=== PATIENT | female | born 1960 | race Caucasian/White ===

== ENCOUNTER 2022-11-22 11:29 | Inpatient (IN) | payer BC, OTHER ==
[2022-11-22] MEDS ORDERED: ALBUTEROL SO4 2.5/IPRATROPIUM 0.5 INH SOL 3 ML VIAL.NEB. NEB ONE ×2 (12:01→12:56)
[2022-11-22] MEDS ORDERED: predniSONE 20 MG TABLET (UD) PO ONE (12:27)
[2022-11-22] MEDS ORDERED: predniSONE 20 MG TABLET (UD) ONE (12:56)
[2022-11-22 13:16] LABS: BASO % 0.6 % (0-2.0); EOS % 6.5 % (0-4.5); HEMATOCRIT 38.1 % (32.4-45.2); HEMOGLOBIN 12.7 GM/dL (10.7-15.3); LYMPH % 17.4 % (8-40); MCH 31.4 pg (25.7-33.7); MCHC 33.4 g/dl (32.0-36.0); MEAN CELL VOLUME 93.9 fl (80-96); MEAN PLT VOLUME 7.3 fl (7.5-11.1); MONO % 5.6 % (3.8-10.2); NEUT % 69.9 % (42.8-82.8); PLATELET COUNT 332 10^3/uL (134-434); RBC 4.06 M/mm3 (3.60-5.2); RDW 15.1 % (11.6-15.6); WHITE BLOOD COUNT 11.1 K/mm3 (4.0-10.0)
[2022-11-22] MEDS ORDERED: PIPERACILLIN/TAZOB 4.5 GM 4.5 GM in DEXTROSE 5%-WATER 100 ML IVPB ONE (13:16)
[2022-11-22 13:34] LABS: PROTHROMBIN TIME (PATIENT) 11.6 SEC (9.7-13.0)
[2022-11-22 13:36] LABS: ACTIVATED PTT 35.3 SECONDS (25.2-36.5)
[2022-11-22 13:49] LABS: ALBUMIN 3.4 g/dl (3.4-5.0); CALCIUM 9.2 mg/dL (8.5-10.1)
[2022-11-22 13:50] LABS: BLOOD UREA NITROGEN 15.6 mg/dL (7-18)
[2022-11-22 13:52] LABS: CREATININE 1.3 mg/dL (0.55-1.3)
[2022-11-22 13:54] LABS: BILIRUBIN,TOTAL 0.3 mg/dL (0.2-1); TOT PROT 7.1 g/dl (6.4-8.2)
[2022-11-22 13:57] LABS: N-TERMINAL BNP 21.5 pg/ml (5-125)
[2022-11-22] MEDS ORDERED: PIPERACILLIN/TAZOB 4.5 GM 4.5 GM/100 ML BAG IVPB ONE (13:57)
[2022-11-22 18:27] VITALS: BMI 24.3
[2022-11-22] MEDS: ALBUTEROL SO4 2.5/IPRATROPIUM 0.5 INH SOL 3 ML VIAL.NEB. NEB SCH (19:30)
[2022-11-22] MEDS ORDERED: QUEtiapine FUMARATE 25 MG TABLET ONE (21:29)
[2022-11-22] MEDS: MONTELUKAST NA 10 MG TABLET PO SCH (21:33)
[2022-11-22] MEDS: GABAPENTIN 300 MG CAPSULE PO SCH (21:33)
[2022-11-22] MEDS: BACLOFEN 10 MG TABLET (FP) PO SCH (21:34)
[2022-11-22] MEDS: QUEtiapine FUMARATE 50 MG TABLET PO SCH (21:38)
[2022-11-22] MEDS ORDERED: SACUBITRIL/VALSARTAN 24 MG-26 MG TABLET PO SCH (22:00)
[2022-11-22] MEDS: ACETAMINOPHEN 325 MG TABLET (FP) PO PRN (23:18)
[2022-11-23] MEDS: ALBUTEROL SO4 2.5/IPRATROPIUM 0.5 INH SOL 3 ML VIAL.NEB. NEB SCH ×4 (07:52→20:05)
[2022-11-23] MEDS: CEFTRIAXONE 1 GM in DEXTROSE 5%-WATER - 50 ML IVPB SCH ×3 (08:30→11:48)
[2022-11-23 08:34] LABS: BASO % 0.2 % (0-2.0); EOS % 0.2 % (0-4.5); HEMOGLOBIN 12.4 GM/dL (10.7-15.3); LYMPH % 17.1 % (8-40); MCH 31.6 pg (25.7-33.7); MCHC 33.4 g/dl (32.0-36.0); MEAN CELL VOLUME 94.6 fl (80-96); MEAN PLT VOLUME 7.3 fl (7.5-11.1); MONO % 5.8 % (3.8-10.2); NEUT % 76.7 % (42.8-82.8); PLATELET COUNT 343 10^3/uL (134-434); RBC 3.91 M/mm3 (3.60-5.2); RDW 14.8 % (11.6-15.6); WHITE BLOOD COUNT 10.6 K/mm3 (4.0-10.0)
[2022-11-23 09:00] LABS: ALBUMIN 3.2 g/dl (3.4-5.0); BLOOD UREA NITROGEN 21.3 mg/dL (7-18); MAGNESIUM 2.2 mg/dL (1.8-2.4)
[2022-11-23 09:03] LABS: PHOSPHOROUS 3.8 mg/dL (2.5-4.9)
[2022-11-23 09:04] LABS: TOT PROT 6.7 g/dl (6.4-8.2)
[2022-11-23 09:05] LABS: BILIRUBIN,TOTAL 0.2 mg/dL (0.2-1)
[2022-11-23] MEDS: AZITHROMYCIN 250 MG TABLET PO SCH ×3 (09:12→11:48)
[2022-11-23] MEDS ORDERED: methylPREDNISolone NA SUCC 40 MG/1 ML VIAL IVPUSH SCH (10:00)
[2022-11-23] MEDS ORDERED: SPIRONOLACTONE 25 MG TABLET PO SCH (10:00)
[2022-11-23] MEDS ORDERED: PATIENT'S OWN MEDICATION (NON-FORMULARY) (Dolutegravir Sodium/Lamivudine [Dovato 50-300 Mg PO SCH (10:00)
[2022-11-23] MEDS: ENOXAPARIN NA (PORCINE) 40 MG/0.4 ML DISP.SYRIN SQ SCH (11:33)
[2022-11-23] MEDS: LORATADINE 10 MG TABLET PO SCH (11:33)
[2022-11-23] MEDS: GABAPENTIN 300 MG CAPSULE PO SCH ×2 (11:33→21:36)
[2022-11-23] MEDS: DOLUTEGRAVIR SODIUM 50 MG TABLET (NON-FORMULARY) PO SCH (11:34)
[2022-11-23] MEDS: lamiVUDine 150 MG TABLET PO SCH (11:35)
[2022-11-23] MEDS ORDERED: guaiFENesin/D-M SUGAR-FREE/ACLHOL-FREE (200 MG/10 MG) 5 ML PO PRN (15:24)
[2022-11-23] MEDS: ACETAMINOPHEN 325 MG TABLET (FP) PO PRN ×2 (15:31→21:31)
[2022-11-23] MEDS ORDERED: QUEtiapine FUMARATE 25 MG TABLET ONE (21:20)
[2022-11-23] MEDS: QUEtiapine FUMARATE 50 MG TABLET PO SCH (21:33)
[2022-11-23] MEDS: methylPREDNISolone NA SUCC 40 MG/1 ML VIAL IVPUSH SCH (21:34)
[2022-11-23] MEDS: BACLOFEN 10 MG TABLET (FP) PO SCH (21:35)
[2022-11-23] MEDS: MONTELUKAST NA 10 MG TABLET PO SCH (21:36)
[2022-11-23] MEDS: BUDESONIDE/FORMETEROL FUMARATE 160/4.5 mcg INHALER IH SCH (21:39)
[2022-11-23] MEDS: diphenhydrAMINE HCL 25 MG CAPSULE (FP) PO PRN (21:41)
[2022-11-24] MEDS: methylPREDNISolone NA SUCC 40 MG/1 ML VIAL IVPUSH SCH ×4 (02:06→21:32)
[2022-11-24] MEDS: ALBUTEROL SO4 2.5/IPRATROPIUM 0.5 INH SOL 3 ML VIAL.NEB. NEB SCH ×4 (08:32→20:21)
[2022-11-24] MEDS: GABAPENTIN 300 MG CAPSULE PO SCH ×2 (09:41→21:32)
[2022-11-24] MEDS: AZITHROMYCIN 250 MG TABLET PO SCH (09:41)
[2022-11-24] MEDS: ENOXAPARIN NA (PORCINE) 40 MG/0.4 ML DISP.SYRIN SQ SCH (09:41)
[2022-11-24] MEDS: LORATADINE 10 MG TABLET PO SCH (09:41)
[2022-11-24] MEDS: DOLUTEGRAVIR SODIUM 50 MG TABLET (NON-FORMULARY) PO SCH (09:42)
[2022-11-24] MEDS: lamiVUDine 150 MG TABLET PO SCH (09:42)
[2022-11-24] MEDS: BUDESONIDE/FORMETEROL FUMARATE 160/4.5 mcg INHALER IH SCH ×2 (09:45→21:33)
[2022-11-24] MEDS: ACETAMINOPHEN 325 MG TABLET (FP) PO PRN (13:32)
[2022-11-24] MEDS: ACETAMINOPHEN/CAFFEINE/BUTALBITAL 1 TAB PO PRN (17:30)
[2022-11-24] MEDS ORDERED: QUEtiapine FUMARATE 25 MG TABLET ONE (21:30)
[2022-11-24] MEDS: QUEtiapine FUMARATE 50 MG TABLET PO SCH (21:32)
[2022-11-24] MEDS: BACLOFEN 10 MG TABLET (FP) PO SCH (21:33)
[2022-11-24] MEDS: MONTELUKAST NA 10 MG TABLET PO SCH (21:33)
[2022-11-24] MEDS: diphenhydrAMINE HCL 25 MG CAPSULE (FP) PO PRN (21:43)
[2022-11-25] MEDS: methylPREDNISolone NA SUCC 40 MG/1 ML VIAL IVPUSH SCH ×3 (02:09→17:04)
[2022-11-25] MEDS: ALBUTEROL SO4 2.5/IPRATROPIUM 0.5 INH SOL 3 ML VIAL.NEB. NEB SCH ×4 (08:13→20:30)
[2022-11-25] MEDS: AZITHROMYCIN 250 MG TABLET PO SCH (09:11)
[2022-11-25] MEDS: GABAPENTIN 300 MG CAPSULE PO SCH ×2 (09:11→22:18)
[2022-11-25] MEDS: LORATADINE 10 MG TABLET PO SCH (09:12)
[2022-11-25] MEDS: lamiVUDine 150 MG TABLET PO SCH (09:13)
[2022-11-25] MEDS: DOLUTEGRAVIR SODIUM 50 MG TABLET (NON-FORMULARY) PO SCH (09:14)
[2022-11-25] MEDS: ENOXAPARIN NA (PORCINE) 40 MG/0.4 ML DISP.SYRIN SQ SCH (09:21)
[2022-11-25] MEDS: BUDESONIDE/FORMETEROL FUMARATE 160/4.5 mcg INHALER IH SCH ×2 (09:22→22:19)
[2022-11-25] MEDS ORDERED: BISACODYL 5 MG TABLET.DR (FP) PO ONE (12:00)
[2022-11-25] MEDS: POLYETHYLENE GLYCOL (HEALTHYLAX) 3350 17 GM PACKET PO SCH ×2 (12:15→22:18)
[2022-11-25] MEDS: ACETAMINOPHEN/CAFFEINE/BUTALBITAL 1 TAB PO PRN (14:10)
[2022-11-25] MEDS ORDERED: QUEtiapine FUMARATE 25 MG TABLET ONE (21:39)
[2022-11-25] MEDS: BACLOFEN 10 MG TABLET (FP) PO SCH (22:18)
[2022-11-25] MEDS: MONTELUKAST NA 10 MG TABLET PO SCH (22:19)
[2022-11-25] MEDS: QUEtiapine FUMARATE 50 MG TABLET PO SCH (22:19)
[2022-11-26] MEDS: methylPREDNISolone NA SUCC 40 MG/1 ML VIAL IVPUSH SCH ×2 (02:33→09:39)
[2022-11-26] MEDS: ALBUTEROL SO4 2.5/IPRATROPIUM 0.5 INH SOL 3 ML VIAL.NEB. NEB SCH ×2 (08:53→12:55)
[2022-11-26 08:57] LABS: BASO % 0.1 % (0-2.0); HEMOGLOBIN 11.4 GM/dL (10.7-15.3); MCH 31.3 pg (25.7-33.7); MCHC 33.6 g/dl (32.0-36.0); MEAN CELL VOLUME 93.1 fl (80-96); MEAN PLT VOLUME 7.1 fl (7.5-11.1); MONO % 7.6 % (3.8-10.2); NEUT % 69.3 % (42.8-82.8); PLATELET COUNT 354 10^3/uL (134-434); RBC 3.66 M/mm3 (3.60-5.2); RDW 15.2 % (11.6-15.6); WHITE BLOOD COUNT 11.9 K/mm3 (4.0-10.0)
[2022-11-26 09:26] LABS: ALBUMIN 2.9 g/dl (3.4-5.0); CALCIUM 8.9 mg/dL (8.5-10.1)
[2022-11-26 09:27] LABS: TOT PROT 5.9 g/dl (6.4-8.2)
[2022-11-26 09:28] LABS: BILIRUBIN,TOTAL 0.2 mg/dL (0.2-1)
[2022-11-26 09:29] LABS: BLOOD UREA NITROGEN 24.1 mg/dL (7-18)
[2022-11-26] MEDS: AZITHROMYCIN 250 MG TABLET PO SCH (09:39)
[2022-11-26] MEDS: POLYETHYLENE GLYCOL (HEALTHYLAX) 3350 17 GM PACKET PO SCH (09:39)
[2022-11-26] MEDS: ENOXAPARIN NA (PORCINE) 40 MG/0.4 ML DISP.SYRIN SQ SCH (09:39)
[2022-11-26] MEDS: LORATADINE 10 MG TABLET PO SCH (09:40)
[2022-11-26] MEDS: GABAPENTIN 300 MG CAPSULE PO SCH (09:40)
[2022-11-26] MEDS: lamiVUDine 150 MG TABLET PO SCH (09:42)
[2022-11-26] MEDS: DOLUTEGRAVIR SODIUM 50 MG TABLET (NON-FORMULARY) PO SCH (09:43)
[2022-11-26] MEDS: BUDESONIDE/FORMETEROL FUMARATE 160/4.5 mcg INHALER IH SCH (09:51)
[2022-11-26] MEDS ORDERED: predniSONE 20 MG TABLET (UD) PO SCH (12:30)
[2022-11-26 13:27] VITALS: BP 138/52; PULSE 91; RESP 18; TEMP 97.8
[2022-11-26 22:07] LABS: CYCLIC CITRULLINE PEPTIDE AB 2 units (0-19)
[2022-11-27 21:06] LABS: ATYPICAL pANCA <1:20 titer (Neg:<1:20); C-ANCA <1:20 titer (Neg:<1:20)
== END 2022-11-26 13:34 | disposition home or self-care (01) | DRG 202 ==
LOC: JER 11:29 → UNDOADMOB 14:13 → INTOOBSV 14:13 → JERBED 14:13 → J5S 15:20 → JERBED 15:20 → J5S 17:16 → OBSVTOIN 11-23 15:10
PROVIDERS: ADMIT Internal Medicine; ATTEND Internal Medicine
DX: J45.50 Severe persistent asthma, uncomplicated (principal); B20 Human immunodeficiency virus [HIV] disease; F31.89 Other bipolar disorder; I51.81 Takotsubo syndrome; J67.9 Hypersensitivity pneumonitis due to unspecified organic dust; G43.909 Migraine, unspecified, not intractable, without status migrainosus
CPT/HCPCS: 0241U-QW; 36415; 71046-TC-FY; 71250-TC; 80053; 83520; 83735; 83880; 84100; 84443; 85025; 85379; 85610; 85651; 85730; 86038; 86140; 86200; 86256; 86359; 86360; 86431; 87633; 87899; 93005; 93010; 93306-TC; 94640; 99285-25; G0378; J0475

== ENCOUNTER 2023-01-09 10:26 | Inpatient (IN) | payer BC, OTHER ==
[2023-01-09] MEDS ORDERED: methylPREDNISolone NA SUCC 125 MG/2 ML VIAL IVPB ONE (10:36)
[2023-01-09] MEDS ORDERED: MAGNESIUM SULF 50% (8.12 MEQ/2 ML-1 GM VIAL) IVPB ONE (10:37)
[2023-01-09] MEDS ORDERED: ALBUTEROL SO4 2.5/IPRATROPIUM 0.5 INH SOL 3 ML VIAL.NEB. NEB ONE ×2 (10:37→10:48)
[2023-01-09] MEDS ORDERED: methylPREDNISolone NA SUCC 125 MG/2 ML VIAL ONE (10:48)
[2023-01-09] MEDS ORDERED: MAGNESIUM SULFATE IN WATER 2 GM/50 ML IVPB IVPB ONE (10:48)
[2023-01-09] MEDS ORDERED: VANCOMYCIN 1 GM in D5W (PRE-DOCKED) 1,000 MG/250 ML (RESTRICTED TO ID ONLY IVPB ONE (11:45)
[2023-01-09] MEDS ORDERED: PIPERACILLIN/TAZOB 3.375 GM 3.375 GM in DEXTROSE 5%-WATER - 50 ML IVPB ONE (11:45)
[2023-01-09 11:49] LABS: HEMATOCRIT 42.6 % (32.4-45.2); HEMOGLOBIN 14.5 G/dL (10.7-15.3); MCH 32.4 pg (25.7-33.7); MEAN CELL VOLUME 95.2 fl (80-96); MEAN PLT VOLUME 8.1 fl (7.5-11.1); PLATELET COUNT 306.4 10^3/uL (134-434); RBC 4.48 10^6/uL (3.60-5.2); RDW 14.2 % (11.6-15.6); WHITE BLOOD COUNT 10.6 10^3/uL (4.0-10.8)
[2023-01-09 11:57] LABS: ALBUMIN 3.8 g/dl (3.4-5.0); BILIRUBIN,TOTAL 0.6 mg/dl (0.2-1); CALCIUM 9.8 mg/dl (8.5-10); CREATININE 1.1 mg/dl (0.55-1.3); MAGNESIUM 1.9 mg/dL (1.8-2.4); POTASSIUM 4.1 mmol/L (3.5-5.1); TOT PROT 7.2 g/dl (6.4-8.2)
[2023-01-09 12:44] LABS: PLATELET ESTIMATE ADEQUATE
[2023-01-09] MEDS ORDERED: PIPERACILLIN/TAZOBACTAM 3.375 GM VIAL IVPB ONE (12:58)
[2023-01-09] MEDS ORDERED: VANCOMYCIN 1,000 MG VIAL (RESTRICTED TO ID ONLY) ONE (12:58)
[2023-01-09] MEDS: ALBUTEROL SO4 2.5/IPRATROPIUM 0.5 INH SOL 3 ML VIAL.NEB. NEB SCH (13:25)
[2023-01-09] MEDS ORDERED: guaiFENesin/D-METHORPHAN HB 10 ML UNIT-DOSE CUPS PO PRN (15:54)
[2023-01-09] MEDS ORDERED: ALBUTEROL SO4 2.5/IPRATROPIUM 0.5 INH SOL 3 ML VIAL.NEB. NEB PRN (16:08)
[2023-01-09 18:33] VITALS: BMI 24.8
[2023-01-09] MEDS ORDERED: AZITHROMYCIN IVPB 500 MG/250 ML BAG IVPB ONE (19:30)
[2023-01-09] MEDS: POLYETHYLENE GLYCOL (HEALTHYLAX) 3350 17 GM PACKET PO SCH (21:33)
[2023-01-09] MEDS: BUDESONIDE/FORMETEROL FUMARATE 160/4.5 mcg INHALER IH SCH (21:36)
[2023-01-09] MEDS ORDERED: MONTELUKAST NA 10 MG TABLET PO SCH (22:00)
[2023-01-09] MEDS ORDERED: QUEtiapine FUMARATE 50 MG TABLET PO SCH (22:00)
[2023-01-09] MEDS ORDERED: MELATONIN 5 MG TABLETS PO SCH (22:00)
[2023-01-09] MEDS ORDERED: GABAPENTIN 300 MG CAPSULE PO SCH ×2 (22:00)
[2023-01-09] MEDS ORDERED: BACLOFEN 10 MG TABLET (FP) PO SCH (22:00)
[2023-01-09 22:20] VITALS: RESP 19
[2023-01-10] MEDS ORDERED: buPROPion HCL 100 MG TABLET PO SCH (07:00)
[2023-01-10] MEDS: ALBUTEROL SO4 2.5/IPRATROPIUM 0.5 INH SOL 3 ML VIAL.NEB. NEB SCH ×3 (07:26→13:48)
[2023-01-10] MEDS: ALBUTEROL SULFATE 0.021% (0.63 MG/3 ML) VIAL.NEB NEB SCH (07:26)
[2023-01-10] MEDS: POLYETHYLENE GLYCOL (HEALTHYLAX) 3350 17 GM PACKET PO SCH (09:45)
[2023-01-10] MEDS: BUDESONIDE/FORMETEROL FUMARATE 160/4.5 mcg INHALER IH SCH (09:47)
[2023-01-10] MEDS ORDERED: lamiVUDine 150 MG TABLET PO SCH ×2 (10:00→22:00)
[2023-01-10] MEDS ORDERED: PANTOPRAZOLE 40 MG TABLET PO SCH (10:00)
[2023-01-10] MEDS ORDERED: predniSONE 20 MG TABLET (UD) PO SCH (10:00)
[2023-01-10] MEDS ORDERED: DOLUTEGRAVIR SODIUM 50 MG TABLET (NON-FORMULARY) PO SCH (10:00)
[2023-01-10] MEDS ORDERED: PATIENT'S OWN MEDICATION (NON-FORMULARY) (Dolutegravir Sodium/Lamivudine [Dovato 50-300 Mg PO SCH (10:00)
[2023-01-10] MEDS ORDERED: LORATADINE 10 MG TABLET PO SCH (10:00)
[2023-01-10] MEDS ORDERED: ACETAMINOPHEN 325 MG TABLET (FP) PO PRN (12:45)
[2023-01-10] MEDS ORDERED: AZITHROMYCIN 250 MG TABLET PO SCH (14:45)
[2023-01-10 16:18] VITALS: BP 130/59; PULSE 69; TEMP 98.5
== END 2023-01-10 16:18 | disposition home or self-care (01) | DRG 190 ==
LOC: FER 10:26 → FM/S 12:43
PROVIDERS: ADMIT Internal Medicine; ATTEND Internal Medicine
DX: J44.1 Chronic obstructive pulmonary disease with (acute) exacerbation (principal); J18.9 Pneumonia, unspecified organism; J45.41 Moderate persistent asthma with (acute) exacerbation; F31.9 Bipolar disorder, unspecified; J44.0 Chronic obstructive pulmonary disease with (acute) lower respiratory infection; D72.10 Eosinophilia, unspecified; Z21 Asymptomatic human immunodeficiency virus [HIV] infection status
CPT/HCPCS: 0241U-QW; 36415; 71045-TC-FY; 71250-TC; 80053; 83735; 85027; 86682; 87070; 87205; 87633; 87899; 93005; 94150; 94640; 94761; 97116-GP; 97161-GP; 99285-25; J0475